=== PATIENT | male | born 1975 | race Caucasian/White ===

== ENCOUNTER 2020-08-02 08:30 | Outpatient (RCR) | payer OTHER, SELFPAY ==
--- NOTE | 2020-06-25 11:52 | HP.PTEVAL_ITS ---
Patient's Visit Information SHARI CORONA is a 45 year old M referred to Physical Therapy by Dr. Jem Osman MD with a diagnosis of S/P R shoulder arthroscopy 06/17/20. Date of Evaluation: 06/25/20 Physical Therapist: Bubba Shen, PT, ATC - Visit Plan Frequency: 2-3x /Week Duration: 4-6 Weeks Plan: R shoulder stretching and strengthening, scap stab ex's, PROM/mobs, UBE, and HEP - Subjective DOS= 06/17/20. Pt reports he had to have arthroscopy performed on R shoulder secondary to OA and a labral tear. Pt reports he was in a sling for a day, but then was told he didnt have to wear it afterwards. Pt notes he is in continuous pain at this time. Pt notes no tingling or numbness in R UE. Pt notes he has sleep difficulty secondary to R shoulder pain. No PMHx of R shoulder pain. Pt reports this pain originated several years ago and just progressively worsened over time. Pt is R hand dominant. 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 3/10 pain at rest, 9/10 pain at worst (reaching for something that he dropped) - Pain R shoulder Pain Intensity (Out of 10): 3 Pain Intensity Range: 9 - Objective Neuro: B UE sensation is WNL to light touch. B bicepital reflex= 2/3. Observation: Incisions are healing well. No obvious signs of infection. ROM: L shoulder flex= 180, abd= 180, ER= 70, IR WNL; R shoulder flex= 65, abd= 60, ER= 45, IR moderately limited. MMT: L UE 5/5 throughout. R UE 3/5 and painful - Goals Goal 1:: Increase R shoulder strength x 1 grade to aid with RTW without limitation Goal Time Frame: 4-6 Weeks Goal 2:: Increase R shoulder flex and abd ROM x 40 degrees to aid with overhead acitvity Goal Time Frame: 4-6 Weeks Goal 3:: Decrease R shoulder pain x 50% to aid with sleep Goal Time Frame: 4-6 Weeks Goal 4:: I with HEP Goal Time Frame: 4-6 Weeks - Rehabilitation Potential Physical Therapy Diagnosis: R shoulder pain, limited ROM, and weakness secondary to L shoulder arthroscopy Rehabilitation Potential: Good - Anticipated Interventions Patient/Client Instruction: Educate patient on: Condition, Plan of Care For the Purpose of:: To decrease pain, To increase ROM, To improve muscle performance and motor function Therapeutic Exercise to Include: Strength training, Flexibilty training, Passive ROM, Active ROM, Scapular Strength/Stabilization For the Purpose of:: To decrease pain, To increase ROM, To improve muscle performance and motor function Cryotherapy (ice pack, ice massage): Yes For the Purpose of:: To decrease pain Thank you for the opportunity to evaluate your patient. For Medicare and Medicare HMO plans, please review the plan of care and approve it. It will need to be FAXED BACK to us at [phone] for Medicare purposes. For Medicare only, by signing this I certify the plan of care. Please let me know if there are questions or concerns regarding this plan of care. Physician Signature: Date:
--- NOTE | 2020-09-24 13:48 | HP.PTDCSUM ---
It has been my pleasure to treat SHARI CORONA referred by Dr. Jem Osman MD, with the diagnosis of S/P R shoulder arthroscopy 06/17/20 for a total of 18 visit(s). Discharge Date: Please see the following information for a summary of their discharge status. Subjective: No pain this date R shoulder Pain Intensity (Out of 10): 0 % Improvement: 90 Objective/Function: R shoulder pain 0/10. R shoulder MMT: 5/5 throughout with exception to ER= 4+/5. R shoulder ROM: flex and abd= 175 degrees. Pt is I with HEP. Rx goals achieved Goal 1:: Increase R shoulder strength x 1 grade to aid with RTW without limitation Goal Progress: Goal Met Goal 2:: Increase R shoulder flex and abd ROM x 40 degrees to aid with overhead acitvity Goal Progress: Goal Met Goal 3:: Decrease R shoulder pain x 50% to aid with sleep Goal Progress: Goal Met Goal 4:: I with HEP Goal Progress: Goal Met Plan: Discharge If there are questions or concerns regarding this patient's physical therapy, please feel free to call me at [phone]. Thank you for the referral of this patient. Sincerely, Bubba Shen, PT, ATC
== END 2020-08-02 19:00 | disposition home or self-care (01) ==
LOC: PT 08:30
PROVIDERS: PCP Orthopaedic Surgery; Referring Provider Orthopaedic Surgery; Visit Provider Orthopaedic Surgery
DX: M19.011 Primary osteoarthritis, right shoulder (principal); M75.41 Impingement syndrome of right shoulder; M65.811 Other synovitis and tenosynovitis, right shoulder; S43.421D Sprain of right rotator cuff capsule, subsequent encounter; S43.431D Superior glenoid labrum lesion of right shoulder, subsequent encounter
CPT/HCPCS: 97110; 97161; 97164

== ENCOUNTER 2021-08-08 10:38 | Outpatient (CLI) | payer OTHER, SELFPAY ==
[2021-08-08 11:10] VITALS: BP 134/81; PULSE 71; RESP 16; TEMP 37.1; O2SAT 98; BMI 44.4
[2021-08-08] MEDS: 0.9% Saline Lock 10 ML Syringe IV (11:22)
[2021-08-08 11:51] VITALS: BP 131/82; PULSE 69; RESP 16; TEMP 36.4; O2SAT 98
[2021-08-08 13:04] VITALS: BP 123/78; PULSE 72; RESP 16; TEMP 36.4; O2SAT 97
== END 2021-08-08 12:45 | disposition home or self-care (01) ==
LOC: MS3OUT 10:39 → MS3 10:39
PROVIDERS: PCP Orthopaedic Surgery; Referring Provider Nurse Practitioner Adult Health; Visit Provider Nurse Practitioner Adult Health
DX: U07.1 COVID-19 (principal)
CPT/HCPCS: J7050; M0243; A4216; Q0240

== ENCOUNTER 2025-03-02 09:14 | Day surgery (SDC) | payer OTHER, SELFPAY ==
[2025-03-02] VITALS (8 sets, daily range): BP systolic 111–142; BP diastolic 81–90; PULSE 63–75; RESP 14–16; TEMP 36.2–37.1; O2SAT 95–99; BMI 33.9
[2025-03-02] MEDS: Lactated Ringers 1,000 ML 15 ML IV (09:44)
--- NOTE | 2025-03-02 10:00 | HP.PCM_ITS ---
History and Physical Date of Admission: 03/02/25 Intake Vital Signs 08/08/2111:10 02/15/2514:56 Height 5 ft 10 in 5 ft 10 in Weight: 227 lb BMI 32.5 BP 120/78 Blood Pressure Location Rt brachial Position Sitting Respiration 17 Pulse 73 Pulse Source Monitor Temp 97.5 F L Temp Source Temporal Pulse Oximetry (%) 97 Oxygen Delivery Method room air Intake Visit Reasons: COLONOSCOPY, BLOOD IN STOOL Chief Complaint: colonoscopy, blood in stool Is patient in pain?: No Allergies No Known Allergies Allergy (Verified 02/15/25 14:57) Medications ?Medication ?Instructions ?Recorded ?Confirmed ?Type albuterol sulfate 90 mcg/actuation 1 - 2 puff inhalation Q4H PRN PRN . 07/2502/15/25 History aerosol inhaler bupropion HCl 150 mg tablet,12 hr 150 mg PO BID 08/08/21 02/15/25 History sustained-release lisinopril 20 mg tablet 20 mg PO DAILY 08/08/21 02/15/25 History tamsulosin 0.4 mg capsule 0.4 mg PO BID 02/15/25 02/15/25 History PFSH Medical History (Updated 02/15/25 @ 14:56 by Shena Moreira LPN) HTN (hypertension) Sleep apnea Timothy blood in stool Social History (Updated 02/15/25 @ 14:56 by Shena Moreira LPN) Smoking Status: Never smoker alcohol intake: current alcohol intake frequency: a few times a week substance use type: does not use HPI HPI HPI: Patient is a 49-year-old male who had an episode of blood in his stool. It was nonpainful. He has not had any blood since. He has never had a colonoscopy. He denies family history of colon cancer. He denies abdominal pain. ROS General General: No weight change, appetite, fatigue, colon cancer, breast cancer or weakness HEENT HEENT: No difficulty swallowing, eye injury, eye surgery, swollen glands or hoarseness Endo Endocrine: No thyroid disease, diabetes mellitus, thyroid cancer, Hair loss, heat intolerance or cold intolerance Skin Skin: No rash or changing moles Musc Musculoskeletal: No back problems, arthritis, rheumatoid arthritis, gout or joint pain Cardio Cardiovascular: Yes high blood pressure; No murmur, pacemaker, heart disease, atrial fibrillation, heart attack, heart stent, palpitations, shortness of breath with exertion or chest pain Psych Psychiatric: No depression, anxiety or hearing voices Resp Respiratory: No shortness of breath, Yes sleep apnea, No cough, No COPD, Yes asthma, No emphysema and No wheezing Gastro Gastrointestinal: No abdominal pain, No nausea or vomiting, No diarrhea, No constipation, Yes blood in stool, No acid reflux, No hemorrhoids, No ulcers, No gallbladder problem and No black,tarry stools [place] Hematologic: No blood thinners, No blood disorders, No bleeding, No anemia and No blood clots Neuro Neurologic: No numbness, No tingling and No weakness Exam Const General: cooperative Orientation: alert and oriented x3 HENMT Head: normal to inspection Neck Neck: normal visual inspection and full ROM Chest Chest palpation & inspection: normal inspection of the chest Resp Effort & Inspection: normal respiratory effort Auscultation: clear to auscultation bilaterally Cardio Rate: regular rate Rhythm: regular rhythm GI Inspection: non-distended Palpation: soft and nontender Skin General: no rashes or lesions noted Neuro General: patient alert and patient oriented x3 Extrem General: full ROM Psych Appearance: grossly normal Mental Status: mental status grossly normal Assessment and Plan Assessment and Plan (1) Timothy blood in stool: Status: Acute Plan: Patient had one episode of blood in the stool and I will perform a colonoscopy to evaluate. I explained endoscopy in detail to the patient. I explained the risks including but not limited to stroke or heart attack with anesthesia, perforation of the GI tract, bleeding, infection. I explained that any of these could necessitate further emergency surgery. The patient understands and all questions were answered sufficiently. The patient wishes to proceed with procedure. Sanchez Rosario MD Pager: [facility] [address] [place] [address], [address] [place] [address] Office: I have examined the patient and the H&P has been reviewed. There are no clinical changes since date of exam.
--- NOTE | 2025-03-02 10:15 | COLBX_PTH ---
PATIENT: SHARI CORONA LOC: EN U#:[id number] AGE/SX: 49/M ROOM: RE03/02/[address]: Dr. Sanchez Rosario MD : 1975 BED: DIS: 03/02/2025 SPEC #: [id number] RECD: 03/02/25 13:26 STATUS: MARTA ASHWINI #: [id number] DEBORAH: 03/02/25 10:[address]: Sanchez Rosario DEPT: SURGICAL PATHOLOGY RECD BY: Teo Moreira ENTERED: 03/02/25 13:45 SP TYPE: COLON BX OTHR DR: ROSARIO Ibarra Tissues: A - Rectum, NOS Procedures: Surgery Specimen Level IV HEADER OPERATION: Colonoscopy with polypectomy PRE-OP DIAGNOSIS: Timothy blood in stool TISSUE SUBMITTED: A- Rectal polyp MICROSCOPIC DIAGNOSIS A. Rectum, polyp, biopsy: * Tubulovillous adenoma, multiple fragments. MICROSCOPIC DESCRIPTION Slides are reviewed. GROSS DESCRIPTION A. Received in formalin in a container labeled with the patient's name, date of , and rectal polyp are 2 baer-pink fragments of mucosal tissue, each measuring 0.4 x 0.3 x 0.3 cm. Submitted in toto in A1. SMB 03-02-2025 CPT:67242
--- NOTE | 2025-03-02 10:19 | PCM.PRE.AN2 ---
ASA Classification* ASA Classification ASA Classification: 2 Assessment & Plan Anesthesia* Anesthesia Assessment Anesthesia Assessment: Discussed sedation and/or anesthesia options, risks, benefits, and alternatives with patient/parents/legal guardian/POA. Questions invited. The patient/parents/legal guardian/POA seems to understand and agrees to proceed with anesthesia plan. Reviewed the physical assessment, medical history, allergy history and patient home medications list prior to surgery/procedure/anesthetic and documented any changes. Performed airway and anesthesia risk assessments. 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 When Was Last Pacemaker Check QUESTION #4 FULL TEXT: You/Your Family Experience fever (hyperthermia) with Anesthesia Last Oral Intake Last Oral intake: Last Oral Intake NPO since 06:20 03/02/25 09:28 Meds taken in AM with sips of No 03/02/25 09:28 water? 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 Female No 03/01/25 08:22 HX of Motion Sickness No 03/01/25 08:22 HX of N/V After Surgery No 03/01/25 08:22 Non-Smoker Yes 03/01/25 08:22 Duration of Surgery greater No 03/01/25 08:22 than 60 minutes Number of Risk Factors 1 03/01/25 08:22 PONV Score Low Risk 03/01/25 08:22 Height & Weight Height & Weight: Anesthesia: Height & Weight Height 5 ft 8 in 03/02/25 09:28 Weight: 101.1 kg 03/02/25 09:28 Body Mass Index (BMI) 33.9 03/02/25 09:28 Respiratory Assessment Respiratory Assessment - sewing machine operator: Respiratory Tract Infection Hx - sewing machine operator Hx Respiratory Tract Infection No 03/01/25 08:22 STOP Sleep Apnea STOP Sleep Apnea - sewing machine operator: STOP Sleep Apnea - sewing machine operator Hx Hypertension Yes 03/01/25 08:22 Hx Sleep Apnea Yes 03/01/25 08:22 CPAP Yes: UNABLE TO TOLERATE 03/01/25 08:22 BIPAP No 03/01/25 08:22 Do you snore loudly (louder than talking or can be heard Do you often feel tired/ fatigued/ sleepy during daytime? Has anyone observed you stop breathing during sleep? STOP Results Positive 03/01/25 08:22 QUESTION #5 FULL TEXT : Do you snore loudly (louder than talking or can be heard through closed doors)? 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 Specify any problems Hx of Preganancy in last 3 N/A 03/01/25 08:22 Months Nurse Filling Out Transfusion [place] 03/01/25 08:22 & Questions: Date: 03/01/25 03/01/25 08:22 Time: 03/01/25 08:22 Patient unable to answer at this time (ie. confused, unrespo /Reproduction History /Reproductive History - sewing machine operator: /Reproductive Hx- sewing machine operator Hx Now No 03/01/25 08:22 Gestational Age (in weeks): EDC: Hx Hx Para Hx Section SAB Active Medications Active Medications: Current Medications Generic Name Dose Route Start Last Admin Trade Name Freq PRN Reason Stop Dose Admin Lactated Ringer's 1,000 mls @ 15 mls/hr 03/02/25 09:45 03/02/25 09:44 IV 15 mls/hr .Q48H PAM Administration PFSH Medical History Alcohol use Prostate disease Heartburn Non-smoker CPAP (continuous positive airway pressure) dependence Leg cramps HTN (hypertension) Sleep apnea Timothy blood in stool Home Medications ?Medication ?Instructions ?Recorded ?Last Taken ?Type albuterol sulfate 90 mcg/actuation 1 - 2 puff inhalation Q4H PRN PRN . 08/08/21 Unknown History aerosol inhaler bupropion HCl 150 mg tablet,12 hr 150 mg PO BID 08/08/21 Unknown History sustained-release lisinopril 20 mg tablet 20 mg PO DAILY 08/08/21 Unknown History tamsulosin 0.4 mg capsule 0.4 mg PO BID 02/15/25 Unknown History cetirizine 10 mg tablet (24Hour 10 mg PO DAILY PRN allergy symptoms 03/01/25 Unknown History Allergy) omeprazole 20 mg tablet,delayed 20 mg PO DAILY 03/01/25 Unknown History release Allergy/AdvReac Type Severity Reaction Status Date / Time No Known Allergies Allergy Verified 03/02/25 09:26 Surgical History (Updated 03/01/25 @ 08:23 by Ching Romero) History of rotator cuff surgery Social History Smoking Status: Never smoker alcohol intake: current alcohol intake frequency: a few times a week substance use type: does not use Review of Systems (Anesthesia) ROS Narrative System reviewed and no additional complaints, except as documented. Physical Exam Const alert and oriented x3 HEENT dentition normal Neck full ROM Resp normal respiratory effort and normal air movement Cardio regular rate Back/Spine normal ROM
--- NOTE | 2025-03-02 10:43 | PCM.POST.ANE ---
Anesthesia: Postop Eval I Current Vital Signs Temperature: 97.1 F Pulse Rate: 72 Blood Pressure: 115/86 Respiratory Rate: 14 Pulse Ox: 98 Oxygen Delivery Method: Room Air Assessment Airway patent: Yes Spontaneous unlabored respirations: Yes nausea: No Vomiting: No Anesthesia Complication: No Fluid Hydration Crystalloid volume administer (ml): 100 Total IV fluid infused: 100 Progress Note Anesthesia document: Postop Eval 1 completed: Yes
--- NOTE | 2025-03-02 10:45 | OP.CCLET_ITS ---
03/02/2025 Montez Ibarra Re : Colonoscopy procedure for Cole Currie Dear Garima This procedure was performed on Sunday, March 02, 2025. My impressions and recommendations are as follows: Impressions : - One small polyp in the rectum, removed with a hot snare. Resected and retrieved. - The examination was otherwise normal on direct and retroflexion views. Recommendations : - Discharge patient to home. - Resume previous diet. - Continue present medications. - Await pathology results. - Repeat colonoscopy in 5 years for surveillance. My findings are described in the full procedure note, which is enclosed. If I can be of further assistance, please feel free to contact me at Doctor phone number(s): , Work: . Sincerely, Sanchez Rosario MD 03/02/2025 10:44:55 AM This report has been signed electronically.
--- NOTE | 2025-03-02 10:45 | OP.COLON_ITS ---
Patient Name: Cole Currie Procedure Date: 03/02/2025 10:30 AM Date of : 1975 Age: 49 Procedure: Colonoscopy Indications: Rectal bleeding Providers: Sanchez Rosario MD Referring MD: Montez Ibarra Medicines: Propofol per Anesthesia Patient Profile: This is a 49 year old male. Refer to note in patient chart for documentation of history and physical. Last Colonoscopy: none. The patient's first colonoscopy is today. Complications: No immediate complications. Estimated blood loss: Minimal. Procedure: Pre-Anesthesia Assessment: - Prior to the procedure, a History and Physical was performed, and patient medications and allergies were reviewed. The patient's tolerance of previous anesthesia was also reviewed. The risks and benefits of the procedure and the sedation options and risks were discussed with the patient. All questions were answered, and informed consent was obtained. Prior Anticoagulants: The patient has taken no anticoagulant or antiplatelet agents. After reviewing the risks and benefits, the patient was deemed in satisfactory condition to undergo the procedure. After I obtained informed consent, the scope was passed under direct vision. Throughout the procedure, the patient's blood pressure, pulse, and oxygen saturations were monitored continuously. The Colonoscope was introduced through the anus and advanced to the cecum, identified by appendiceal orifice and ileocecal valve. The colonoscopy was performed without difficulty. The patient tolerated the procedure well. The quality of the bowel preparation was good. The ileocecal valve, appendiceal orifice, and rectum were photographed. Scope In: 10:30:43 AM Scope Withdrawal Time 0 hours 7 minutes 32 seconds Scope Out: 10:42:06 AM Total Procedure Duration Time 0 hours 11 minutes 23 seconds Findings: A small polyp was found in the rectum. The polyp was removed with a hot snare. Resection and retrieval were complete. The exam was otherwise without abnormality on direct and retroflexion views. Impression: - One small polyp in the rectum, removed with a hot snare. Resected and retrieved. - The examination was otherwise normal on direct and retroflexion views. Recommendation: - Discharge patient to home. - Resume previous diet. - Continue present medications. - Await pathology results. - Repeat colonoscopy in 5 years for surveillance. Procedure Code(s): --- Professional --- 43691, Colonoscopy, flexible; with removal of tumor(s), polyp(s), or other lesion(s) by snare technique Diagnosis Code(s): --- Professional --- D12.8, Benign neoplasm of rectum K62.5, Hemorrhage of anus and rectum CPT copyright 2021 [employer]. All rights reserved. The codes documented in this report are preliminary and upon circus agent review may be revised to meet current compliance requirements. Sanchez Rosario MD 03/02/2025 10:44:55 AM This report has been signed electronically. Number of Addenda: 0 Note Initiated On: 03/02/2025 10:30 AM
--- NOTE | 2025-03-02 11:32 | POSTOPAN2_ITS ---
Anesthesia Postop Eval I Sum Postop Eval Completion status Anesthesia document: Postop Eval 1 completed: Yes Anesthesia Postop Eval I Summary Anesthesia Postop Eval I Summary: Anesthesia Postop Eval I: Assessment Summary Airway patent Yes 03/02/25 10:44 SENIOR FIELD SERVICE ENGINEER.HBARR Spontaneous unlabored Yes 03/02/25 10:44 SENIOR FIELD SERVICE ENGINEER.HBARR respirations Mental status nausea No 03/02/25 10:44 SENIOR FIELD SERVICE ENGINEER.HBARR Vomiting No 03/02/25 10:44 SENIOR FIELD SERVICE ENGINEER.HBARR Anesthesia Postop Eval I: Fluid Summary Crystalloid volume administer 100 03/02/25 10:44 SENIOR FIELD SERVICE ENGINEER.HBARR (ml) Colloids volume administered ( ml) Blood Product volume administered (ml) Total IV fluid infused 100 03/02/25 10:44 SENIOR FIELD SERVICE ENGINEER.HBARR Anesthesia Postop Eval I: Summary Notes Anesthesia Complication No 03/02/25 10:44 SENIOR FIELD SERVICE ENGINEER.HBARR Anesthesia Complication Comment: Post-operative progress note Anesthesia: Postop Eval II Evaluation Mental status: Awake and Calm Pain Level: 3 nausea: No Vomiting: No
--- NOTE | 2025-03-02 11:32 | PCM.POSTANE2 ---
Anesthesia Postop Eval I Sum Postop Eval Completion status Anesthesia document: Postop Eval 1 completed: Yes Anesthesia Postop Eval I Summary Anesthesia Postop Eval I Summary: Anesthesia Postop Eval I: Assessment Summary Airway patent Yes 03/02/25 10:44 JINRIKISHA DRIVER.HBARR Spontaneous unlabored Yes 03/02/25 10:44 JINRIKISHA DRIVER.HBARR respirations Mental status nausea No 03/02/25 10:44 JINRIKISHA DRIVER.HBARR Vomiting No 03/02/25 10:44 JINRIKISHA DRIVER.HBARR Anesthesia Postop Eval I: Fluid Summary Crystalloid volume administer 100 03/02/25 10:44 JINRIKISHA DRIVER.HBARR (ml) Colloids volume administered ( ml) Blood Product volume administered (ml) Total IV fluid infused 100 03/02/25 10:44 JINRIKISHA DRIVER.HBARR Anesthesia Postop Eval I: Summary Notes Anesthesia Complication No 03/02/25 10:44 JINRIKISHA DRIVER.HBARR Anesthesia Complication Comment: Post-operative progress note Anesthesia: Postop Eval II Evaluation Mental status: Awake and Calm Pain Level: 3 nausea: No Vomiting: No
== END 2025-03-02 11:23 | disposition home or self-care (01) ==
LOC: EN 09:14 → AC 09:15
PROVIDERS: PCP Physician Assistant; Referring Provider Physician Assistant; Visit Provider Surgery
PROC: 0DJD8ZZ Inspection of Lower Intestinal Tract, Via Natural or Artificial Opening Endoscopic (ICD-10-PCS; CPT 45378; principal; 2025-03-02 10:10)
DX: D12.8 Benign neoplasm of rectum (principal); K62.5 Hemorrhage of anus and rectum; I10 Essential (primary) hypertension; Z79.899 Other long term (current) drug therapy
CPT/HCPCS: 45385; 88305